=== PATIENT | male | born 1955 | race Hispanic/Latino ===

== ENCOUNTER 2020-02-29 19:24 | Emergency (ER) | payer MEDICARE ==
[2020-02-29 19:55] VITALS: BP 134/68
--- NOTE | 2020-02-29 19:58 | Emergency Department Report ---
Blank Doc - Documentation Documentation: 64-year-old male that presents with right upper back abscess. This initial assessment/diagnostic orders/clinical plan/treatment(s) is/are subject to change based on patient's health status, clinical progression and re- assessment by fellow clinical providers in the ED. Further treatment and workup at subsequent clinical providers discretion. Patient/guardians urged not to elope from the ED as their condition may be serious if not clinically assessed and managed. Initial orders include: 1- Patient sent to [facility] for further evaluation and treatment
[2020-02-29] MEDS ORDERED: HYDROcodone/ACETAMINOPHEN 5-325 MG TAB PO ONE (20:13)
[2020-02-29] MEDS ORDERED: cephALEXin 500 MG CAP PO ONE (20:13)
--- NOTE | 2020-02-29 20:19 | Emergency Department Report ---
- General Chief complaint: Skin/Abscess/Foreign Body Stated complaint: CELLULITIS BACK Time Seen by Provider: 02/29/20 19:56 Source: patient, EMS Mode of arrival: Stretcher Limitations: No Limitations - History of Present Illness Initial comments: Patient is a 64-year-old white male who presents for upper back abscess 1 x 2 cm. Patient is inpatient at [facility]. Patient has history of diabetes type 2 and hypertension. States abscess to back for 3 days. Now with purulent drainage and pain. There is no fever, chills, nausea vomiting. Symptoms are relieved by nothing, symptoms are exacerbated by palpation. MD complaint: abscess/boil - Related Data Previous Rx's Medication Instructions Recorded Last Taken Type Acetaminophen/Codeine [Tylenol 1 tab PO Q6H PRN #12 tab 02/29/20 Unknown Rx /Codeine # 3 tab] cephALEXin [Keflex] 500 mg PO Q8HR 7 Days #21 cap 02/29/20 Unknown Rx Allergies Allergy/AdvReac Type Severity Reaction Status Date / Time No Known Allergies Allergy Unverified 02/29/20 20:01 Abscess Boil HPI - HPI Chief Complaint: Skin/Abscess/Foreign Body Stated Complaint: CELLULITIS BACK Time Seen by Provider: 02/29/20 19:56 Home Medications: Previous Rx's Medication Instructions Recorded Last Taken Type Acetaminophen/Codeine [Tylenol 1 tab PO Q6H PRN #12 tab 02/29/20 Unknown Rx /Codeine # 3 tab] cephALEXin [Keflex] 500 mg PO Q8HR 7 Days #21 cap 02/29/20 Unknown Rx Allergies/Adverse Reactions: Allergies Allergy/AdvReac Type Severity Reaction Status Date / Time No Known Allergies Allergy Unverified 02/29/20 20:01 ED Review of Systems ROS: Stated complaint: CELLULITIS BACK Other details as noted in HPI Constitutional: denies: chills, fever Eyes: denies: eye pain, eye discharge, vision change ENT: denies: ear pain, throat pain Respiratory: denies: cough, shortness of breath, wheezing Cardiovascular: denies: chest pain, palpitations Endocrine: no symptoms reported Gastrointestinal: denies: abdominal pain, nausea, diarrhea Genitourinary: denies: urgency, dysuria Musculoskeletal: denies: back pain, joint swelling, arthralgia Skin: other (abscess back 1x2 cm ) Neurological: denies: headache, weakness, paresthesias Psychiatric: denies: anxiety, depression Hematological/Lymphatic: denies: easy bleeding, easy bruising ED Past Medical Hx - Past Medical History Previous Medical History?: Yes Hx Hypertension: Yes Additional medical history: Parkinson's Ds - Surgical History Past Surgical History?: No - Social History Smoking Status: Never Smoker Substance Use Type: None - Medications Home Medications: Home Medications Medication Instructions Recorded Confirmed Last Taken Type Acetaminophen/Codeine [Tylenol 1 tab PO Q6H PRN #12 tab 02/29/20 Unknown Rx /Codeine # 3 tab] cephALEXin [Keflex] 500 mg PO Q8HR 7 Days #21 cap 02/29/20 Unknown Rx ED Physical Exam - General Limitations: No Limitations General appearance: alert, in no apparent distress - Head Head exam: Present: atraumatic, normocephalic - Eye Eye exam: Present: normal appearance - ENT ENT exam: Present: normal exam - Neck Neck exam: Present: normal inspection, full ROM. Absent: tenderness - Respiratory Respiratory exam: Present: normal lung sounds bilaterally. Absent: respiratory distress, wheezes, stridor, chest wall tenderness - Cardiovascular Cardiovascular Exam: Present: regular rate, normal rhythm, normal heart sounds. Absent: systolic murmur, diastolic murmur, rubs, gallop - GI/Abdominal GI/Abdominal exam: Present: soft, normal bowel sounds. Absent: distended, tenderness, bruit, hernia - Rectal Rectal exam: Present: deferred - Extremities Exam Extremities exam: Present: normal inspection. Absent: full ROM, tenderness - Back Exam Back exam: Present: normal inspection, full ROM, other (abscess 1x2 cm, erythema , fluctuant, painful to touch purulent drainage. ). Absent: vertebral tenderness - Neurological Exam Neurological exam: Present: alert, oriented X3, CN II-XII intact - Psychiatric Psychiatric exam: Present: normal affect, normal mood - Skin Skin exam: Present: warm, dry, other (abscess as above ) ED Course Vital Signs 02/29/20 19:52 Temperature 98.9 F Pulse Rate 91 H Respiratory 18 Rate Blood Pressure 134/68 O2 Sat by Pulse 93 Oximetry - I & D Upper Back Type of Procedure: Simple Site: Upper back 1 x 2 cm Blade Size: 11 I & D Procedure: betadine prep, sterile drapes applied, sterile dressing applied Progress: Mid back abscess 1 x 2 cm erythema fluctuant painful to touch, site cleaned with Betadine solution, anesthesia 1% lidocaine x2 cc. Incision with 11 blade scalpel x1, loculations broken up with 6 inch blunt forceps, moderate purulent drainage, wound irrigated with 20 cc sterile saline, all bleeding controlled, sterile dressing applied, patient given wound care instructions. Patient verbalized agreement and understanding with same. ED Medical Decision Making - Medical Decision Making Patient for I&D upper back, see procedure note, patient given post I&D wound care instruction, patient verbalized agreement and understanding with same including follow-up with PCP in 2 to 3 days. Patient DC'd home with prescriptions , and sitter, patient return to [facility] with no acute distress at this time. Critical care attestation.: If time is entered above; I have spent that time in minutes in the direct care of this critically ill patient, excluding procedure time. ED Disposition Clinical Impression: Abscess of upper back excluding scapular region Disposition: DC-01 TO HOME OR SELFCARE Is pt being admited?: No Does the pt Need Aspirin: No Condition: Stable Instructions: Skin Abscess, Incision and Drainage, Care After Prescriptions: cephALEXin [Keflex] 500 mg PO Q8HR 7 Days #21 cap Acetaminophen/Codeine [Tylenol /Codeine # 3 tab] 1 tab PO Q6H PRN #12 tab PRN Reason: Pain Referrals: PRIMARY CARE, [Primary Care Provider] - 3-5 Days Time of Disposition: 20:40
== END 2020-02-29 21:00 | disposition home or self-care (01) ==
LOC: ED 19:24
DX: L02.212 Cutaneous abscess of back [any part, except buttock and flank] (principal); I10 Essential (primary) hypertension; Z79.899 Other long term (current) drug therapy